=== PATIENT | male | born 2000 | race Two or more races ===

== ENCOUNTER 2020-08-05 19:01 | Emergency (ER) | payer OTHER ==
[~2020-08-05] VITALS: Ht 175.3 cm; Wt 79.4 kg
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
--- NOTE | 2020-08-05 19:40 | NUR ---
XRAY AT BEDSIDE
[2020-08-05] MEDS ORDERED: PROPOFOL 0 ML IV ONE (20:04)
[2020-08-05] MEDS ORDERED: PROPOFOL 20 ML IV ONE (20:40)
--- NOTE | 2020-08-05 20:46 | NUR ---
UNDER THE DIRECT SUPERVISION OF DR VALADEZ 200MG TOTAL PROPOFOL GIVEN. RT, DOCUMENTING RN, EMT, AND DOSING RN AT BEDSIDE. 2035PROP IVP 50MG GIVEN. 2036 PROP IVP 20MG 2037 PROP IVP 20MG 2038 PROP IVP 20MG 2039 PROP IVP 20MG 2040 PROP IVP 20MG 2041 PROP IVP 20MG 2042 PROP IVP 20MG 2043 PROP IVP 20MG 2044 PROP IVP 20MG PT SUCCESSFUL RIGHT SHOULDER REDUCTION AT 2045 RT AT BEDSIDE PT VSS WILL CONTINUE TO MONITOR CLOSELY
[2020-08-05 21:39] VITALS: BP 132/80
== END 2020-08-05 21:34 | disposition home or self-care (01) ==
LOC: ER 19:08
DX: S43.084A Other dislocation of right shoulder joint, initial encounter (principal); W22.8XXA Striking against or struck by other objects, initial encounter; Y93.39 Activity, other involving climbing, rappelling and jumping off; Y92.89 Other specified places as the place of occurrence of the external cause; Y99.8 Other external cause status
CPT/HCPCS: 23650; 73030; 99152; 99285; J2704; J7030; G0500

== ENCOUNTER 2021-02-16 01:55 | Emergency (ER) | payer OTHER ==
[~2021-02-16] VITALS: Ht 180.3 cm; Wt 86.2 kg
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
[2021-02-16] MEDS ORDERED: LIDOCAINE 1%-EPI 1:100,000 20 ML VIAL ONE (02:26)
[2021-02-16] MEDS ORDERED: SODIUM BICARBONATE 5 ML VIAL ONE (02:27)
[2021-02-16] MEDS: SODIUM BICARBONATE 5 ML VIAL MC ONE (02:51)
[2021-02-16] MEDS: LIDOCAINE 1%-EPI 1:100,000 20 ML VIAL TP ONE (02:51)
[2021-02-16] MEDS ORDERED: BACI/NEOM/POLY B OINT PKT 1 UDPKT PACKET ONE (02:53)
--- NOTE | 2021-02-16 02:58 | NUR ---
Patient discharged to home in stable condition. Written and verbal after care instructions given. Patient verbalizes understanding of instruction.
[2021-02-16 03:33] VITALS: BP 130/95
[2021-02-16] MEDS: BACI/NEOM/POLY B OINT PKT 1 UDPKT PACKET TP ONE (03:34)
--- NOTE | 2021-02-16 03:41 | NUR ---
[employer] ON SITE. PT D/C.
== END 2021-02-16 03:00 | disposition home or self-care (01) ==
LOC: ER 01:55
DX: S01.21XA Laceration without foreign body of nose, initial encounter (principal); R51.9 Headache, unspecified; Y08.89XA Assault by other specified means, initial encounter; Y93.89 Activity, other specified; Y92.89 Other specified places as the place of occurrence of the external cause; Y99.8 Other external cause status
CPT/HCPCS: 12011; 99283; J3490 ×2

== ENCOUNTER 2021-02-28 12:48 | Emergency (ER) | payer OTHER ==
--- NOTE | 2021-02-28 13:40 | NUR ---
not in ed waiting room. left without being seen.
== END 2021-02-28 13:42 | disposition left against medical advice (07) ==
LOC: ER 12:55
DX: Z53.21 Procedure and treatment not carried out due to patient leaving prior to being seen by health care provider (principal)

== ENCOUNTER 2021-03-01 05:38 | Emergency (ER) | payer OTHER ==
[~2021-03-01] VITALS: Ht 180.3 cm; Wt 89.8 kg
--- NOTE | 2021-03-01 05:46 | NUR ---
called to triage x 2, no answer
--- NOTE | 2021-03-01 05:54 | NUR ---
CALLED TO TRIAGE AGAIN, NO ASNWER AND NOT IN WAITING ROOM
--- NOTE | 2021-03-01 06:17 | NUR ---
bib self for suture removal. suture site healing appropriately no signs of infection. md at bedside for eval.
--- NOTE | 2021-03-01 06:30 | NUR ---
Patient discharged to home in stable condition. Written and verbal after care instructions given. Patient verbalizes understanding of instruction.
[2021-03-01 06:31] VITALS: BP 129/82
== END 2021-03-01 06:31 | disposition home or self-care (01) ==
LOC: ER 05:41
DX: S01.511D Laceration without foreign body of lip, subsequent encounter (principal); X58.XXXD Exposure to other specified factors, subsequent encounter

== ENCOUNTER 2021-03-14 01:29 | Emergency (ER) | payer OTHER ==
--- NOTE | 2021-03-14 01:31 | NUR ---
CALLED PATIENT TO TRIAGE, NO ANSWER.
--- NOTE | 2021-03-14 02:40 | NUR ---
CALLED PATIENT TO TRIAGE. NO ANSWER.
--- NOTE | 2021-03-14 03:01 | NUR ---
CALLED PT TO TRIAGE ROOM, NO ANSWER
[2021-03-14] MEDS ORDERED: SULF1TAB48 PO (05:36)
== END 2021-03-14 03:02 | disposition left against medical advice (07) ==
LOC: ER 01:31
DX: Z02.89 Encounter for other administrative examinations (principal); Z53.21 Procedure and treatment not carried out due to patient leaving prior to being seen by health care provider

== ENCOUNTER 2021-03-14 04:09 | Emergency (ER) | payer OTHER ==
[~2021-03-14] VITALS: Ht 175.3 cm; Wt 88.5 kg
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
--- NOTE | 2021-03-14 04:35 | NUR ---
PT BIBSELF C/O SPIDER BITE ON LEFT SIDE UNDER ARM. PT AAOX4 BREATHING EVENLY AND UNLABORED. UPON ASSESMENT, PT HAS REDNESS AND SWELLING UNDER LEFT ARM, BELOW THE ARM PIT. PT ATTACHED TO MONITOR AND POX. MD AT BEDSIDE. PT GIVEN BLANKET AND CALL LIGHT WITHIN REACH
[2021-03-14] MEDS ORDERED: LIDOCAINE 1%-EPI 1:100,000 20 ML VIAL ONE (04:47)
[2021-03-14] MEDS ORDERED: LIDOCAINE 1%-EPI 1:100,000 20 ML VIAL TP ONE (05:00)
--- NOTE | 2021-03-14 05:19 | NUR ---
AT BEDSIDE FOR I&D
[2021-03-14] MEDS ORDERED: SULF1TAB48 PO (05:36)
--- NOTE | 2021-03-14 05:45 | NUR ---
Patient discharged to home in stable condition. Written and verbal after care instructions given. Patient verbalizes understanding of instruction.
[2021-03-14 05:50] VITALS: BP 122/77
== END 2021-03-14 05:45 | disposition home or self-care (01) ==
LOC: ER 04:15
DX: J86.9 Pyothorax without fistula (principal); F17.210 Nicotine dependence, cigarettes, uncomplicated; Z79.899 Other long term (current) drug therapy
CPT/HCPCS: 21501; 99283; 99406; A6403; A6407; J3490

== ENCOUNTER 2021-05-12 00:13 | Emergency (ER) | payer OTHER ==
[~2021-05-12] VITALS: Ht 175.3 cm; Wt 95.3 kg
[~2021-05-12 00:13] MED LIST: SULF1TAB48 PO
--- NOTE | 2021-05-12 00:18 | NUR ---
called to triage not in waiting room
[2021-05-12] MEDS ORDERED: AMOX-430 PO (00:37)
[2021-05-12] MEDS ORDERED: TDAP [DIPH/PERTUSSIS/TET] 0.5 ML VIAL IM ONE (00:40)
[2021-05-12] MEDS ORDERED: AMOX/CLAVULANATE 875 MG TABLET ONE (00:40)
[2021-05-12] MEDS: AMOX/CLAVULANATE 875 MG TABLET PO ONE (00:46)
[2021-05-12] MEDS: TDAP [DIPH/PERTUSSIS/TET] 0.5 ML VIAL IM ONE (00:47)
--- NOTE | 2021-05-12 00:49 | NUR ---
Patient discharged to home in stable condition. Written and verbal after care instructions given. Patient verbalizes understanding of instruction.
[2021-05-12 00:54] VITALS: BP 147/78
== END 2021-05-12 00:55 | disposition home or self-care (01) ==
LOC: ER 00:20
DX: S01.85XA Open bite of other part of head, initial encounter (principal); W54.0XXA Bitten by dog, initial encounter; Y93.89 Activity, other specified; Y92.89 Other specified places as the place of occurrence of the external cause; Y99.8 Other external cause status
CPT/HCPCS: 90471; 90715; 99283; A6403

== ENCOUNTER 2021-08-21 17:34 | Emergency (ER) | payer OTHER ==
[~2021-08-21] VITALS: Ht 177.8 cm; Wt 95.3 kg
[~2021-08-21 17:34] MED LIST changes: +AMOX-430 PO
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
[2021-08-21] MEDS ORDERED: MORPHINE SULFATE INJ 4 MG/ML DISP.SYRIN IM ONE (18:00)
--- NOTE | 2021-08-21 18:00 | NUR ---
AT BED SIDE
[2021-08-21] MEDS ORDERED: MORPHINE SULFATE INJ 4 MG/ML DISP.SYRIN ONE ×2 (18:06→20:07)
[2021-08-21] MEDS ORDERED: ONDANSETRON HCL/PF 4 MG/2 ML VIAL ONE (18:12)
[2021-08-21] MEDS ORDERED: ONDANSETRON HCL/PF 4 MG/2 ML VIAL IV ONE (18:30)
[2021-08-21] MEDS ORDERED: MORPHINE SULFATE INJ 4 MG/ML DISP.SYRIN IV ONE (18:30)
--- NOTE | 2021-08-21 18:45 | NUR ---
MD TRIED TO REDUCE DISLOCATED R SHOULDER NO SUCCESS
[2021-08-21] MEDS ORDERED: IV NS 0.9% 1,000 ML BAG IV ONE (19:00)
[2021-08-21] MEDS ORDERED: PROPOFOL 20 ML IV ONE (19:25)
[2021-08-21] MEDS ORDERED: PROPOFOL 200 MG/20 ML VIAL IV ONE (19:30)
--- NOTE | 2021-08-21 19:30 | NUR ---
CONSENT FORM SIGNED AND PLACED IN PT CHART
--- NOTE | 2021-08-21 19:53 | NUR ---
1940 PREPROCEDURAL V/S 112 98% 4LPM NC 132/90 20 RR 7 60MG PROPOFOL 18G LAC 1945 40MG PROPOFOL 18G LAC 99% 123 4LPM N/C 22 RR 1948 40MG PROPFOL 18G LAC 1950 SHOULDER REDUCTION 116 98% 4LPM NC 142/68 20 RR
[2021-08-21] MEDS ORDERED: FENTANYL PF 100MCG/2ML AMPUL IV ONE (20:00)
[2021-08-21] MEDS ORDERED: FENTANYL PF 100MCG/2ML AMPUL ONE (20:03)
--- NOTE | 2021-08-21 20:06 | NUR ---
PT AWAKE AND ALERT BREATHING EVEN AND UNLABORED ALL V/S WNL
[2021-08-21] MEDS ORDERED: MORPHINE SULFATE INJ 2 MG/ML DISP.SYRIN IV ONE (20:30)
[2021-08-21] MEDS ORDERED: NAPR-1009 PO (20:46)
--- NOTE | 2021-08-21 21:04 | NUR ---
Patient discharged to home in stable condition. Written and verbal after care instructions given. Patient verbalizes understanding of instruction. IV line removed and pt ambulated with steady gait.
[2021-08-21 21:13] VITALS: BP 137/71
== END 2021-08-21 21:13 | disposition home or self-care (01) ==
LOC: ER 17:36
DX: M24.411 Recurrent dislocation, right shoulder (principal); F17.200 Nicotine dependence, unspecified, uncomplicated
CPT/HCPCS: 23650; 73030 ×2; 96361; 96374; 96375; 96376; 99152; 99285; 99406; J2270 ×2; J2405; J2704; J3010; J7030; G0500

== ENCOUNTER 2021-10-14 20:18 | Emergency (ER) | payer OTHER ==
[~2021-10-14] VITALS: Ht 177.8 cm; Wt 95.3 kg
[~2021-10-14 20:18] MED LIST changes: +NAPR-1009 PO
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
[2021-10-14] MEDS ORDERED: FENTANYL PF 100MCG/2ML AMPUL ONE (20:47)
[2021-10-14] MEDS ORDERED: MIDAZOLAM HCL 5 MG/5ML VIAL ONE (20:47)
--- NOTE | 2021-10-14 20:51 | NUR ---
CONSENT OBTAINED FOR RIGHT SHOULDER CLOSE REDUCTION WITH MODERATE SEDATION.
--- NOTE | 2021-10-14 20:55 | NUR ---
LAC #20G S/L; PATENT AND INTACT
--- NOTE | 2021-10-14 20:57 | NUR ---
CONTAINER [employer] AT PT'S BEDSIDE
[2021-10-14] MEDS ORDERED: MIDAZOLAM HCL 2 MG/2ML VIAL IV ONE (21:00)
[2021-10-14] MEDS ORDERED: FENTANYL PF 100MCG/2ML AMPUL IV ONE ×2 (21:00→21:30)
--- NOTE | 2021-10-14 21:14 | NUR ---
DIRECTOR OF [facility] AT PT'S BEDSIDE TO S/P R SHOULDER CLOSED REDUCTION PROCEDURE
--- NOTE | 2021-10-14 21:15 | NUR ---
2108: RN, MD, RT, AND TECH AT BEDSIDE FOR MODERATE SEDATION (CONSENT SIGNED AND IN CHART) 2109: 50MCG FENTANYL ADMIN 2110:5MG VERSED ADMIN 2110:50MCG ADMIN 2111: SHOULDER IN PLACED; XRAY PAGED
--- NOTE | 2021-10-14 21:15 | NUR ---
SLING APPLIED TO RIGHT SHOULDER
[2021-10-14] MEDS ORDERED: HYDR-4303 PO (21:28)
--- NOTE | 2021-10-14 21:33 | NUR ---
PT STILL SLEEPING. VSS. PT TOLERATED PROCEDURE WELL. RT AT PT'S BEDSIDE
--- NOTE | 2021-10-14 22:41 | NUR ---
Patient discharged to home in stable condition. Written and verbal after care instructions given. Patient verbalizes understanding of instruction. IV line removed and PT ambulatory with steady gait. Picked up by friend.
[2021-10-14 22:45] VITALS: BP 105/54
== END 2021-10-14 22:46 | disposition home or self-care (01) ==
LOC: ER 20:18
DX: S43.014A Anterior dislocation of right humerus, initial encounter (principal); F17.200 Nicotine dependence, unspecified, uncomplicated; Z87.39 Personal history of other diseases of the musculoskeletal system and connective tissue; Z79.899 Other long term (current) drug therapy; X58.XXXA Exposure to other specified factors, initial encounter; Y93.61 Activity, american tackle football; Y92.89 Other specified places as the place of occurrence of the external cause; Y99.8 Other external cause status
CPT/HCPCS: 23650; 73030 ×2; 99152; 99285; J2250; J3010; J7030; G0500

== ENCOUNTER 2021-10-31 23:52 | Emergency (ER) | payer OTHER ==
[~2021-10-31] VITALS: Ht 172.7 cm; Wt 70.3 kg
[~2021-10-31 23:52] MED LIST changes: +HYDR-4303 PO
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
--- NOTE | 2021-11-01 00:05 | NUR ---
IV LINE ESTABLISHED, LAC 18G
[2021-11-01] MEDS ORDERED: PROPOFOL 20 ML IV ONE (00:46)
[2021-11-01] MEDS ORDERED: IV NS 0.9% 1,000 ML IV PRN (01:00)
[2021-11-01] MEDS ORDERED: PROPOFOL 200 MG/20 ML VIAL IV ONE ×2 (01:00)
--- NOTE | 2021-11-01 01:05 | NUR ---
R SHOULDER REDUCTION WITH MODERATE SEDATION PERFORMED BY ER MD DR HERNANDEZ
--- NOTE | 2021-11-01 01:11 | NUR ---
IV PROPOFOL TOTAL 165 @0102 70ML @0103 35ML @0104 20ML @0105 20ML @0106 20ML
--- NOTE | 2021-11-01 01:19 | NUR ---
XRAY AT BEDSIDE
--- NOTE | 2021-11-01 01:36 | NUR ---
rt called to pt bedside for standby during conscience sedation. pt resting with 2l n/c spo2 95-99. pt showed no signs of resp distress during procedure. rt remained at bedside for approximately 20 min observation. Addendum: 11/01/21 at 0139 by EWELINA NUGENT RT Amended: Links added.
--- NOTE | 2021-11-01 01:46 | NUR ---
PT IS AAOX4, TOLERATED SHOULDER REDUCTION WELL. VSS. STEADY GAIT NOTED.
--- NOTE | 2021-11-01 02:27 | NUR ---
Patient discharged to home in stable condition. Written and verbal after care instructions given. Patient verbalizes understanding of instruction.
[2021-11-01 02:28] VITALS: BP 124/70
== END 2021-11-01 02:29 | disposition home or self-care (01) ==
LOC: ER 23:53
DX: M24.411 Recurrent dislocation, right shoulder (principal); F17.200 Nicotine dependence, unspecified, uncomplicated; Z79.899 Other long term (current) drug therapy
CPT/HCPCS: 23650; 73030 ×2; 96360; 99152; 99285; J2704; J7030 ×2; G0500

== ENCOUNTER 2024-05-29 00:57 | Emergency (ER) | payer OTHER | END 2024-05-29 02:05 | disposition left against medical advice (07) | LOC: ER 02:03 | DX: Z13.89 Encounter for screening for other disorder (principal); Z53.21 Procedure and treatment not carried out due to patient leaving prior to being seen by health care provider ==

== ENCOUNTER 2024-05-29 11:04 | Emergency (ER) | payer OTHER ==
[~2024-05-29] VITALS: Ht 180.3 cm; Wt 88.5 kg
[2024-05-29 11:10] VITALS: BP 126/69; TEMP 97.9
[2024-05-29 11:25] VITALS: O2SAT 99
== END 2024-05-29 11:25 | disposition home or self-care (01) ==
LOC: ER 11:09
DX: S01.01XD Laceration without foreign body of scalp, subsequent encounter (principal); F17.200 Nicotine dependence, unspecified, uncomplicated; X58.XXXD Exposure to other specified factors, subsequent encounter